=== PATIENT | female | born 1955 | race American Indian/Alaskan Native ===

== ENCOUNTER 2017-02-07 10:18 | Outpatient (CLI) | payer MEDICARE ==
--- NOTE | 2017-02-10 08:17 | XRay Report ---
BILATERAL HAND THREE VIEWS EACH: 02/07/17 CLINICAL: Bilateral hand pain. FINDINGS: Right:No acute fracture or dislocation. Old fracture deformity of the fifth metacarpal. Mild diffuse osteopenia. Osteoarthritis involving several joints including the basal joint of the thumb, first MCP joint, fifth MCP joint and the DIP joint of the thumb. The distal radius and ulna are normal. The carpal bones are intact. Normal soft tissues. Left: No acute fracture or dislocation.Suspect old fracture deformity of the proximal phalanx of the fourth digit.Normal soft tissues. Mild osteoarthritis in several joints including the basal joint of the thumb, the first MCP joint, and the fourth in this CP joint. The distal radius and ulna are normal. The carpal bones are intact. Normal soft tissues. IMPRESSION: Bilateral osteoarthritis described. Old fracture deformity of the right fifth metacarpal and probable old fracture deformity of the proximal phalanx of the left fourth digit.
== END 2017-02-07 10:19 | disposition home or self-care (01) ==
LOC: SPVIMAG 10:18
PROVIDERS: ATTEND Orthopaedic Surgery
DX: M19.042 Primary osteoarthritis, left hand (principal); M19.041 Primary osteoarthritis, right hand; M18.9 Osteoarthritis of first carpometacarpal joint, unspecified; M85.841 Other specified disorders of bone density and structure, right hand; S62.306D Unspecified fracture of fifth metacarpal bone, right hand, subsequent encounter for fracture with routine healing; X58.XXXD Exposure to other specified factors, subsequent encounter